=== PATIENT | female | born 1945 | race Hispanic/Latino ===

== ENCOUNTER 2017-05-01 16:30 | Emergency (ER) | payer MEDICARE, OTHER ==
[~2017-05-01] VITALS: Ht 160 cm; Wt 80.0 kg
[~2017-05-01 16:30] MED LIST: ALBUTEROL SUL0.083 % IN; AMILORIDE5 MG OR; AMLODIPINE5 MG PO; AMOXICILLIN500 MG PO; AUGMENTIN500TAB PO; AVELOX400 MG PO; BACTRIM DS1 TAB PO; CEPHALEXIN500 MG PO; CUBICIN500 MG IV; ENALAPRIL5 MG PO; FLEXERIL OR; FUROSEMIDE40 MG PO; HYDROCHLOROT50 MG OR; LEVOTHYROXIN50 MCG OR; LEVOTHYROXIN50 MCG PO; LEVOTHYROXIN75 MCG PO; LISINOPRIL10 MG PO; LORAZEPAM0.5 MG PO; MEDDOSEPAK PO; METFORMIN500 M1 OR; NAC 600 PO; NAPROSYN500 MG PO; NORCO1 TA1 PO; NOVOLIN 70/30 RELION SC; ONDANSETRON4 MG PO; PERCOCET 5/325M1 TAB PO; PYRIDIUM200 MG PO; ROBITUSSIN AC10 ML PO; TOBREX0.3 % OP; ULTRAM50 MG OR; ZYRTEC10 MG PO
[2017-05-01] MEDS ORDERED: LORTAB 10-325 M1 TAB PO (18:22)
[2017-05-01 18:58] VITALS: BP 159/73
== END 2017-05-01 18:58 | disposition home or self-care (01) ==
LOC: ED 16:30
DX: S80.01XA Contusion of right knee, initial encounter (principal); E11.9 Type 2 diabetes mellitus without complications; I10 Essential (primary) hypertension; E03.9 Hypothyroidism, unspecified; W07.XXXA Fall from chair, initial encounter; Y92.000 Kitchen of unspecified non-institutional (private) residence as the place of occurrence of the external cause; M79.604 Pain in right leg

== ENCOUNTER 2017-05-06 17:04 | Emergency (ER) | payer MEDICARE, OTHER ==
[~2017-05-06] VITALS: Ht 160 cm; Wt 80.0 kg
[~2017-05-06 17:04] MED LIST changes: +LORTAB 10-325 M1 TAB PO
[2017-05-06] MEDS ORDERED: TORADOL PO (19:54)
[2017-05-06 20:00] VITALS: BP 148/78
== END 2017-05-06 20:15 | disposition home or self-care (01) ==
LOC: ED 17:04
DX: S80.01XD Contusion of right knee, subsequent encounter (principal); M25.561 Pain in right knee; R11.2 Nausea with vomiting, unspecified; W07.XXXD Fall from chair, subsequent encounter; Y92.000 Kitchen of unspecified non-institutional (private) residence as the place of occurrence of the external cause

== ENCOUNTER 2017-09-10 13:07 | Emergency (ER) | payer MEDICARE, OTHER ==
[~2017-09-10] VITALS: Ht 160 cm; Wt 81.0 kg
[~2017-09-10 13:07] MED LIST changes: +TORADOL PO
[2017-09-10 14:00] LABS: HEMATOCRIT 40.7 % (37.0-47.0); HEMOGLOBIN 13.1 g/dl (12.0-16.0); IMMATURE GRANULOCYTES 0.2 % (0.0-1.0); MEAN CELL VOLUME 85.1 fL CALC (80.0-100.0); MEAN CORPUSCULAR HGB 27.4 pG CALC (26.0-32.0); MEAN CORPUSCULAR HGB CONC 32.2 g/L CALC (32.0-36.0); NEUT# 6.42 thou/uL (2.00-7.15); RED BLOOD COUNT 4.78 mill/uL (4.20-5.60); RED CELL DISTRI WIDTH 13.8 % (11.5-15.5)
[2017-09-10 14:19] LABS: ALBUMIN 4.1 g/dL (3.2-5.0); ALKALINE PHOSPHATASE 95 u/l (38-126); ANION GAP 18 (6-22 (CALC)); BILIRUBIN, TOTAL 0.4 mg/dL (0.0-1.4); BUN 13 mg/dL (8-23); BUN/CREATININE RATIO 14 (12-20 (CALC)); CARBON DIOXIDE 22 mmol/l (22-30); CHLORIDE 105 mmol/l (95-108); CREATININE 0.9 mg/dL (0.5-1.0); GFR > 60 ML/MIN (>=60 (CALC)); GFR FOR AFR.AMER. > 60 ML/MIN (>=60 (CALC)); LIPASE 61 u/l (23-300); POTASSIUM 4.3 mmol/l (3.5-5.1); SGOT/AST 22 u/l (9-36); SGPT/ALT 31 u/l (11-66); SODIUM 140 mmol/l (137-146); TOTAL PROTEIN 7.3 g/dL (6.3-8.2)
[2017-09-10 15:15] LABS: URINE BILIRUBIN - DIPSTICK NEGATIVE (NEGATIVE); URINE BLOOD DIPSTICK NEGATIVE (NEGATIVE); URINE COLOR YELLOW; URINE GLUCOSE - DIPSTICK 250 mg/dL (NEGATIVE); URINE KETONE NEGATIVE (NEGATIVE); URINE LEUK ESTERASE TRACE (NEGATIVE); URINE NITRITE - DIPSTICK NEGATIVE (Negative); URINE PH 6.5 (4.5-8.0); URINE PROTEIN - DIPSTICK NEGATIVE (NEG-TRACE); URINE UROBILINOGEN - DIPSTICK 0.2 E.U./dL (0.2)
[2017-09-10 15:17] LABS: URINE CLARITY CLEAR
[2017-09-10 15:55] VITALS: BP 179/77
== END 2017-09-10 16:01 | disposition home or self-care (01) ==
LOC: ED 13:07
PROVIDERS: Family Medicine
DX: K59.00 Constipation, unspecified (principal); R10.32 Left lower quadrant pain; R10.31 Right lower quadrant pain; R11.0 Nausea; I10 Essential (primary) hypertension; E11.9 Type 2 diabetes mellitus without complications; Z79.4 Long term (current) use of insulin; J43.9 Emphysema, unspecified
CPT/HCPCS: Q9967

== ENCOUNTER 2018-01-19 06:36 | Day surgery (SDC) | payer MEDICARE, OTHER ==
[~2018-01-19 06:36] MED LIST changes: +ALLEGRA180 MG PO; +OMEPRAZOLE20 MG PO; +PROVENTIL0.083 % IN
[2018-01-19 09:48] VITALS: BP 137/63
== END 2018-01-19 10:00 | disposition home or self-care (01) ==
LOC: ENDO 06:36 → ORM 08:00 → ENDO 10:00
PROVIDERS: ATTEND Surgery
PROC: 0DJD8ZZ Inspection of Lower Intestinal Tract, Via Natural or Artificial Opening Endoscopic (ICD-10-PCS; principal; 2018-01-19)
DX: K57.31 Diverticulosis of large intestine without perforation or abscess with bleeding (principal); K64.8 Other hemorrhoids; I10 Essential (primary) hypertension; E11.9 Type 2 diabetes mellitus without complications; J44.9 Chronic obstructive pulmonary disease, unspecified

== ENCOUNTER 2018-05-23 19:28 | Emergency (ER) | payer MEDICARE, OTHER ==
[~2018-05-23] VITALS: Ht 160 cm; Wt 80.0 kg
[2018-05-23] MEDS ORDERED: CETIRIZINE10 MG PO (19:59)
[2018-05-23 20:04] LABS: HEMATOCRIT 40.1 % (37.0-47.0); HEMOGLOBIN 13.1 g/dl (12.0-16.0); IMMATURE GRANULOCYTES 0.4 % (0.0-5.0); MEAN CELL VOLUME 84.6 fL CALC (80.0-100.0); MEAN CORPUSCULAR HGB 27.6 pG CALC (26.0-32.0); MEAN CORPUSCULAR HGB CONC 32.7 g/L CALC (32.0-36.0); NEUT# 3.68 thou/uL (2.00-7.15); RED BLOOD COUNT 4.74 mill/uL (4.20-5.60)
[2018-05-23 20:18] LABS: ALBUMIN 4.1 g/dL (3.2-5.0); ALKALINE PHOSPHATASE 72 u/l (38-126); ANION GAP 15 (6-22 (CALC)); BILIRUBIN, TOTAL 0.4 mg/dL (0.0-1.4); BUN 9 mg/dL (8-23); BUN/CREATININE RATIO 13 (12-20 (CALC)); CARBON DIOXIDE 24 mmol/l (22-30); CHLORIDE 103 mmol/l (95-108); CREATININE 0.7 mg/dL (0.5-1.0); GFR > 60 ML/MIN (>=60 (CALC)); GFR FOR AFR.AMER. > 60 ML/MIN (>=60 (CALC)); POTASSIUM 4.1 mmol/l (3.5-5.1); SGOT/AST 31 u/l (9-36); SODIUM 137 mmol/l (137-146); TOTAL PROTEIN 7.8 g/dL (6.3-8.2)
--- NOTE | 2018-05-23 20:23 | NUR ---
BREATHING TREATMENT GIVEN USING A TRACH COLLAR MASK. BREATHING TECH. FOR GOOD DEPOSITION TO THE LUNGS.
[2018-05-23 20:30] LABS: ACT PARTIAL THROMBO TIME 26.6 SECONDS (20.0-32.5); MYOGLOBIN 127 ng/mL (0 - 62); PROTHROMBIN TIME 10.7 SECONDS (9.0-12.5)
[2018-05-23 20:32] LABS: URINE BILIRUBIN - DIPSTICK NEGATIVE (NEGATIVE); URINE BLOOD DIPSTICK TRACE-LYSED (NEGATIVE); URINE COLOR YELLOW; URINE GLUCOSE - DIPSTICK NEGATIVE (NEGATIVE); URINE KETONE NEGATIVE (NEGATIVE); URINE NITRITE - DIPSTICK NEGATIVE (Negative); URINE PROTEIN - DIPSTICK NEGATIVE (NEG-TRACE); URINE SPECIFIC GRAVITY <=1.005; URINE UROBILINOGEN - DIPSTICK 0.2 E.U./dL (0.2)
[2018-05-23 20:33] LABS: URINE CLARITY TURBID; URINE LEUK ESTERASE MODERATE (NEGATIVE)
[2018-05-23 20:41] LABS: URINE BACTERIA FEW hpf; URINE SQUAMOUS EPITHELIAL CELL FEW EPI/hpf (0-FEW); URINE WBC 20-50 WBC/hpf (0-5)
[2018-05-23] MEDS ORDERED: VENTOLIN HFA IN (22:50)
[2018-05-23] MEDS ORDERED: PREDNISONE10 MG PO (22:50)
[2018-05-23] MEDS ORDERED: BACTRIM DS1 TAB PO (22:50)
[2018-05-23 23:35] VITALS: BP 158/76
== END 2018-05-23 23:30 | disposition home or self-care (01) ==
LOC: ED 19:28
PROVIDERS: Family Medicine
DX: J20.9 Acute bronchitis, unspecified (principal); N39.0 Urinary tract infection, site not specified; I10 Essential (primary) hypertension; E11.9 Type 2 diabetes mellitus without complications; J43.9 Emphysema, unspecified; R06.02 Shortness of breath
CPT/HCPCS: Q9967

== ENCOUNTER 2018-12-11 19:31 | Emergency (ER) | payer MEDICARE, OTHER ==
[~2018-12-11] VITALS: Ht 160 cm; Wt 77.0 kg
[~2018-12-11 19:31] MED LIST changes: +CETIRIZINE10 MG PO; +PREDNISONE10 MG PO; +VENTOLIN HFA IN
[2018-12-11 20:26] LABS: HEMATOCRIT 40.3 % (37.0-47.0); IMMATURE GRANULOCYTES 0.4 % (0.0-5.0); MEAN CELL VOLUME 85.2 fL CALC (80.0-100.0); MEAN CORPUSCULAR HGB 27.5 pG CALC (26.0-32.0); MEAN CORPUSCULAR HGB CONC 32.3 g/L CALC (32.0-36.0); NEUT# 5.1 thou/uL (2.00-7.15); RED BLOOD COUNT 4.73 mill/uL (4.20-5.60); RED CELL DISTRI WIDTH 13.9 % (11.5-15.5)
[2018-12-11 20:39] LABS: URINE BILIRUBIN - DIPSTICK NEGATIVE (NEGATIVE); URINE BLOOD DIPSTICK NEGATIVE (NEGATIVE); URINE COLOR YELLOW; URINE GLUCOSE - DIPSTICK NEGATIVE (NEGATIVE); URINE KETONE NEGATIVE (NEGATIVE); URINE LEUK ESTERASE NEGATIVE (NEGATIVE); URINE NITRITE - DIPSTICK NEGATIVE (Negative); URINE PH 5.5 (4.5-8.0); URINE PROTEIN - DIPSTICK NEGATIVE (NEG-TRACE); URINE SPECIFIC GRAVITY <=1.005; URINE UROBILINOGEN - DIPSTICK 0.2 E.U./dL (0.2)
[2018-12-11 20:57] LABS: ALBUMIN 4.3 g/dL (3.2-5.0); ALKALINE PHOSPHATASE 89 u/l (38-126); ANION GAP 15 (6-22 (CALC)); BILIRUBIN, TOTAL 0.3 mg/dL (0.0-1.4); BUN 11 mg/dL (8-23); BUN/CREATININE RATIO 16 (12-20 (CALC)); CARBON DIOXIDE 27 mmol/l (22-30); CHLORIDE 103 mmol/l (95-108); CREATININE 0.7 mg/dL (0.5-1.0); GFR > 60 ML/MIN (>=60 (CALC)); GFR FOR AFR.AMER. > 60 ML/MIN (>=60 (CALC)); POTASSIUM 4.4 mmol/l (3.5-5.1); SGOT/AST 27 u/l (9-36); SODIUM 141 mmol/l (137-146); TOTAL PROTEIN 7.8 g/dL (6.3-8.2)
[2018-12-11 21:56] VITALS: BP 139/72
== END 2018-12-11 22:06 | disposition home or self-care (01) ==
LOC: ED 19:31
PROVIDERS: Emergency Medicine
DX: J40 Bronchitis, not specified as acute or chronic (principal); R50.9 Fever, unspecified; R06.02 Shortness of breath; R05 Cough; R20.0 Anesthesia of skin; I10 Essential (primary) hypertension; Z93.0 Tracheostomy status

== ENCOUNTER 2019-07-13 08:19 | Observation (INO) | payer MEDICARE, OTHER ==
[~2019-07-13] VITALS: Ht 160 cm; Wt 90.0 kg
[2019-07-13 08:55] LABS: HEMATOCRIT 44.6 % (37.0-47.0); HEMOGLOBIN 14.7 g/dl (12.0-16.0); IMMATURE GRANULOCYTES 0.6 % (0.0-5.0); MEAN CORPUSCULAR HGB 27.7 pG CALC (26.0-32.0); NEUT# 5.52 thou/uL (2.00-7.15); RED BLOOD COUNT 5.31 mill/uL (4.20-5.60); RED CELL DISTRI WIDTH 13.8 % (11.5-15.5)
[2019-07-13 09:10] LABS: ALBUMIN 4.9 g/dL (3.2-5.0); ALKALINE PHOSPHATASE 109 u/l (38-126); AMYLASE 61 u/l (30-110); ANION GAP 17 (6-22 (CALC)); BUN 12 mg/dL (8-23); BUN/CREATININE RATIO 18 (12-20 (CALC)); CARBON DIOXIDE 23 mmol/l (22-30); CHLORIDE 101 mmol/l (95-108); CREATININE 0.7 mg/dL (0.5-1.0); GFR > 60 ML/MIN (>=60 (CALC)); GFR FOR AFR.AMER. > 60 ML/MIN (>=60 (CALC)); LIPASE 70 u/l (23-300); POTASSIUM 4.1 mmol/l (3.5-5.1); SGOT/AST 27 u/l (9-36); SODIUM 137 mmol/l (137-146); TOTAL PROTEIN 9.2 g/dL (6.3-8.2)
[2019-07-13 09:19] LABS: BILIRUBIN, TOTAL 0.6 mg/dL (0.0-1.4)
[2019-07-13 09:27] LABS: URINE BILIRUBIN - DIPSTICK NEGATIVE (NEGATIVE); URINE BLOOD DIPSTICK NEGATIVE (NEGATIVE); URINE COLOR YELLOW; URINE GLUCOSE - DIPSTICK 100 mg/dL (NEGATIVE); URINE KETONE 15 mg/dL (NEGATIVE); URINE LEUK ESTERASE NEGATIVE (NEGATIVE); URINE NITRITE - DIPSTICK NEGATIVE (Negative); URINE PROTEIN - DIPSTICK NEGATIVE (NEG-TRACE); URINE SPECIFIC GRAVITY 1.015; URINE UROBILINOGEN - DIPSTICK 0.2 E.U./dL (0.2)
--- NOTE | 2019-07-13 09:55 | NUR ---
RECIEVED REPORT FROM CANDACE TRUJILLO
--- NOTE | 2019-07-13 10:00 | NUR ---
PT STATES THAT SHE HAS N/V THAT HAS BEEN GOING ON SINCE TODAY AT 0200. PT COMPLAINS OF A 7/10 PAIN IN THE "LADY PARTS" PT STATES HAVING PAIN UPON URINATION, THAT THERE IS A PRESSURE. PT STATES FEELING A BURNING SENSATION IN THE STOMACH. LUNGS CLEAR BI, CAP REFILL BRISK, AND GENERALIZED STOMACH PAIN.
--- NOTE | 2019-07-13 11:15 | NUR ---
PT CONTINUES TO STATE PAIN AND PRESSURE WHEN SHE URINATES, MD ORDERED MEDICATIONS FOR PAIN
--- NOTE | 2019-07-13 12:17 | NUR ---
REASSESSED PT FOR PAIN AFTER MORPHINE ADMINISTRATION PT STATES HER PAIN IS ABOU A 5/10. WILL CONTINUE TO MONITOR. PT ADVISED OF PLAN OF CARE, AND WAIT TIME
[2019-07-13] MEDS ORDERED: AMLODIPINE BESY10 MG PO (13:12)
[2019-07-13] MEDS ORDERED: LORAZEPAM0.5 MG PO (13:13)
[2019-07-13] MEDS ORDERED: LEVOTHYROXIN50 MCG PO (13:13)
[2019-07-13] MEDS ORDERED: OMEPRAZOLE DR40 MG PO (13:13)
[2019-07-13] MEDS ORDERED: NOVOLIN 70/30 SC ×2 (13:14→14:46)
--- NOTE | 2019-07-13 13:25 | NUR ---
DENISA TIERNEY RN
--- NOTE | 2019-07-13 13:45 | NUR ---
PT TRANSPORTED IN STABLE CONDITION AND IN NO DISTRESS TO ROOM 4 ICU. CARE ASSUMED TO KELSY TRUJILLO
--- NOTE | 2019-07-13 13:53 | NUR ---
PT TO ICU4 BY STRETCHER WITH TELE. PT MOVED TO NEW BED x3. ATTACHED TO MONITORS, PUREWICK PLACED. SON @BEDSIDE. EDUCATED ON BED CONTROLS, CALLBELL, SAFETY/FALL, VS.
--- NOTE | 2019-07-13 14:15 | NUR ---
PT CAME TO [facility] ER TODAY FOR N/V/D THAT STARTED SUDDENLY AROUND 0200 THIS AM. PT ALSO C/O PAIN/PRESSURE TO GROIN AREA SINCE SAME; GIVEN MORPHINE IN ER WITH LITTLE RELEIF. PT IS ISRAELI SPEAKING. DENIES FEVER. ON RA. NSR ON TELE. A&Ox4. ALLERGIES TO ASA & VANCO. NO HX OF BLOOD TRANSFUSIONS BUT NO OBJECTIONS. NO HEARING AIDS. NO GLASSES. NO RECENT TOBACCO. PARTIAL DENTURES AT HOME. DENIES ALCOHOL. DENIES DRUGS. 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 C/O SOFT DIARRHEA TODAY. DENIES SKIN ALTERATIONS, NONE OBSERVED. FELL OUT OF BED THIS MORNING TRYING TO GET TO BATHROOM TO VOMIT, NO OTHER FALLS. USES A WALKER AT HOME. LIVES IN APARTMENT ALONE. TAKES ADVIL FOR PAIN AT HOME. CONFUCIANIST: LUTHERAN. NO HOME HEALTH, NO RECENT ADMISSION. ABD SOFT, GROIN TENDER. SKIN WARM/DRY/PINK. STRONG PULSES.
--- NOTE | 2019-07-13 14:30 | NUR ---
PHARMACY @BEDSIDE TO VERIFY HOME MEDS.
[2019-07-13] MEDS ORDERED: CRESTOR20 MG PO (14:48)
[2019-07-13] MEDS ORDERED: XALATAN 0.005%2.5 ML OU (14:50)
--- NOTE | 2019-07-13 15:17 | NUR ---
700ml CLEAR YELLOW OUTPUT IN CANISTER FROM PURE WICK BUT PT STILL C/O PRESSURE TO GROING. BLADDER SCANNER SHOWS 868ml URINE IN BLADDER. CYLINDER FILLER NOTIFIED, RBVO FOR CATH NAVA. PT & SON @BEDSIDE OK WITH PROCEDURE.
--- NOTE | 2019-07-13 15:33 | NUR ---
CATH NAVA PLACED USING STERILE PROCEDURE. IMMEDIATE URINE RETURN. LEG STRAP ON RIGHT THIGH. NAVA DRAINING TO GRAVITY.
[2019-07-13 15:45] VITALS: BP 178/77
--- NOTE | 2019-07-13 15:55 | NUR ---
PT ADMITS RELEIF OF PRESSURE AFTER ANOTHER 700ml OUTPUT OF URINE IN NAVA. PT GIVEN ICE CHIPS FOR DRY MOUTH.
[2019-07-13 16:00] VITALS: BP 143/61
--- NOTE | 2019-07-13 16:06 | NUR ---
PT PLACED ON CONTACT PRECAUTIONS D/T HX OF MRSA. ORDER SET & PPE BAG PLACED. SON @BEDSIDE EDUCATED ON PPE. NASAL SWAB COLLECTED.
--- NOTE | 2019-07-13 17:46 | NUR ---
PT DENIES N/V AT THIS TIME. NO V/D SINCE ARRIVAL TO ICU. PT GIVEN 120ml APPLE JUICE (PT PREFERENCE) TO SIP. PT & SON EDUCATED ON ANTIBIOTICS. ACCUCHECK 168 NOT COVERED D/T NPO STATUS.
--- NOTE | 2019-07-13 17:57 | NUR ---
RT @BEDSIDE FOR BREATHING TREATMENT.
[2019-07-13 18:00] VITALS: BP 154/65
[2019-07-13 19:38] LABS: URINE BILIRUBIN - DIPSTICK NEGATIVE (NEGATIVE); URINE BLOOD DIPSTICK NEGATIVE (NEGATIVE); URINE COLOR YELLOW; URINE GLUCOSE - DIPSTICK 250 mg/dL (NEGATIVE); URINE KETONE NEGATIVE (NEGATIVE); URINE LEUK ESTERASE NEGATIVE (NEGATIVE); URINE NITRITE - DIPSTICK NEGATIVE (Negative); URINE PH 7.5 (4.5-8.0); URINE PROTEIN - DIPSTICK NEGATIVE (NEG-TRACE); URINE UROBILINOGEN - DIPSTICK 0.2 E.U./dL (0.2)
[2019-07-13 20:00] VITALS: BP 103/60
--- NOTE | 2019-07-13 20:00 | NUR ---
awake. nad. son (jeana) @ bedside & translates for this typewriters functional tester. youth nutritional monitor shows sinus tach hr 112. #20 rac ns infusing @ [id number]. remains npo. castro cath in place. urine clear yellow. fall & contact precautions cont.
--- NOTE | 2019-07-13 21:00 | NUR ---
sonata 5mg po given per request for sleep. family @ bedside.
[2019-07-14] VITALS (8 sets, daily range): BP systolic 127–156; BP diastolic 57–79
--- NOTE | 2019-07-14 00:01 | NUR ---
eyes closed. desk monitor shows sinus rhythm hr 82. son @ bedside.
--- NOTE | 2019-07-14 04:00 | NUR ---
hospital monitor shows sinus yoly 1st degree avb hr 58.
--- NOTE | 2019-07-14 07:00 | NUR ---
pt awake in bed; no apparent distress noted at this time; assessment completed; pt nepali only; family members x3 at bedside; family (son Jimmy) request to interpret; ATT line explained; pt denies pain; no n/v noted; resp even and unlabored; lungs clear; skin color wnl; ra; trach with self care noted; hr reg; strong pulses; no edema noted; sr on monitor; abd soft with bs present; no bm noted per screen writer; pt with complaints of llq pain upon palpation; castro to gravity draining clear yellow urine; cath strap intact; # 20 patent to rac with ivf infusing without complication; no redness or edema noted at site; plan of care/ am meds explained; NPO explained; pt able to reposition self; call light within reach; will continue to monitor
--- NOTE | 2019-07-14 08:08 | NUR ---
awake in bed; family x2 present at bedside; no apparent distress noted; castro to gravity; iv intact and patent; sr on monitor; npo maintained; will continue to monitor
--- NOTE | 2019-07-14 10:09 | NUR ---
awake in bed; no apparent distress noted; family x3 at bedside; pt deny needs; pt deny pain, n/v; iv intact and patent; castro to gravity; sr on monitor; call light within reach; will continue to monitor
--- NOTE | 2019-07-14 10:42 | NUR ---
Sydney Lombardo NP present at bedside to assess pt and discuss plan of care
--- NOTE | 2019-07-14 11:24 | NUR ---
ivf decreased as per orders; diet explained; will continue to monitor
[2019-07-14 11:46] LABS: ANION GAP 11 (6-22 (CALC)); BUN 8 mg/dL (8-23); BUN/CREATININE RATIO 13 (12-20 (CALC)); CARBON DIOXIDE 24 mmol/l (22-30); CHLORIDE 108 mmol/l (95-108); CREATININE 0.7 mg/dL (0.5-1.0); GFR > 60 ML/MIN (>=60 (CALC)); GFR FOR AFR.AMER. > 60 ML/MIN (>=60 (CALC)); MAGNESIUM 1.9 mg/dL (1.6-2.3); POTASSIUM 3.5 mmol/l (3.5-5.1); SODIUM 139 mmol/l (137-146)
--- NOTE | 2019-07-14 12:10 | NUR ---
pt awake in bed; no apparent distress noted; pt offers no complaints; denies pain; no n/v noted; castro to gravity; pt tolerating full liquid diet; iv intact and patent; no redness or edema noted at site; call light within reach; will continue to monitor
--- NOTE | 2019-07-14 14:20 | NUR ---
resting in bed with eyes closed; family remains at bedside; no apparent distress noted; castro to gravity; iv patent; no redness or edema noted at site; call light within reach; will continue to monitor
--- NOTE | 2019-07-14 15:15 | NUR ---
castro cath removed as per orders; bsc placed; pt aware to use call light for bathroom/ not to get up without assistance
--- NOTE | 2019-07-14 15:25 | NUR ---
Dr Interiano present at bedside to assess pt and discuss plan of care; Rhonda Rao CNA at bedside to interpret; castro has been removed; pt requesting deep suctioning via trac; RT notified and at bedside; sputum to be collected; family at bedside; will continue to monitor
--- NOTE | 2019-07-14 16:10 | NUR ---
awake in bed; offers no complaints; no apparent distress noted; iv intact and patent; no redness or edema noted at site; sr on monitor; family at beside; call light within reach; will continue to monitor
--- NOTE | 2019-07-14 18:05 | NUR ---
awake in bed eating dinner; family at bedside; no apparent distress noted; sr on monitor; pt had voided post castro removal; call light within reach
--- NOTE | 2019-07-14 19:45 | NUR ---
PT SITS ON BSC, FAMILY AT BEDSIDE. NO ACUTE DISTRESS SHOWN. ALERT AND ORIENTED X4. HEAD TO TOE NURSING ASSESSMENT PERFORMED, SEE CHARTING DOCUMENTATION. NAURUAN SPEAKING ONLY. RAC 20 G IV INTACT, NS INFUSING AT 80 ML/HR. PT REPORTS SHE HAS BEEN ABLE TO VOID. TRACH INTACT, PT DOES PRODUCE MODERATE AMOUNT OF WHITE THIN PHLEGM FROM TRACH. NO COMPLAINTS OF PAIN. POC FOR TONIGHT DISCUSSED. SELF REPSITIONS. ON ROOM AIR, NO SOB NOTED. CALL LIGHT WITHIN REACH.
--- NOTE | 2019-07-14 20:54 | NUR ---
RT NOTIFIES PT REQUESTS BREATHING TX.
--- NOTE | 2019-07-14 21:24 | NUR ---
PT DAUGHTER AT BEDSIDE, PT NOW RECEIVING BREATHING TX. BEDTIME MEDICATION PROVIDED. PT HAS VOIDED, 300ML. PT SITS AT SIDE OF BED. CALL LIGHT WITHIN REACH.
--- NOTE | 2019-07-14 21:56 | NUR ---
CALLED AND SPOKE TO DR TEJADA REGARDING PATIENT IS ANXIOUS AND REQUESTS LORAZEPAM WHICH SHE TAKES AT HOME. NEW ORDERS RECEIVED.
--- NOTE | 2019-07-14 22:08 | NUR ---
LORAZEPAM PO PROVIDED TO PATIENT, SHE CONTINUES TO SHAKE AND IS ANXIOUS. DAUGHTER AT BEDSIDE. PT SITS ON BSC, CALL LIGHT WITHIN REACH.
--- NOTE | 2019-07-14 23:06 | NUR ---
FELIPE CISNEROS AT BEDSIDE.
--- NOTE | 2019-07-14 23:17 | NUR ---
DAUGHTER HAS LEFT BEDSIDE, REASSURED WILL NOTIFY IF ANY CHANGES.
--- NOTE | 2019-07-14 23:38 | NUR ---
PATIENT LAYS ON LEFT SIDE. NO NEEDS AT THIS TIME. NO COMPLAINTS. NO ACUTE DISTRESS SHOWN. CALL LIGHT WITHIN REACH.
[2019-07-15 00:31] VITALS: BP 147/67
--- NOTE | 2019-07-15 03:16 | NUR ---
PATIENT LAYS WITH HOB 30 DEGREES. RESTS WITH EYES CLOSED. NO ACUTE DISTRESS SHOWN. CALL LIGHT WITHIN REACH.
[2019-07-15 04:08] VITALS: BP 153/74
--- NOTE | 2019-07-15 04:11 | NUR ---
CALLED AND SPOKE TO DR IBARRA REGARDING PT C/O OF FEELING BLOATED AND NOT ABLE TO HAVE A BM. LAST BM CHARTED WAS 07/14/18 YESTERDAY. NEW ORDERS RECEIVED. WILL PROVIDE SOON AVAILABLE. PRUNE JUICE WAS ALSO PROVIDED.
--- NOTE | 2019-07-15 04:39 | NUR ---
PT PROVIDED MOM, NOW SITS ON BSC TO VOID AND TRY TO HAVE A BM. CALL LIGHT WITHIN REACH.
--- NOTE | 2019-07-15 04:55 | NUR ---
PT VOIDED 500ML. REPORTS FEELING NAUSEUS BUT REFUSES NAUSEA MEDICATION, SHE WOULD LIKE TO WAIT TO HAVE BOWEL MOVEMENT. NOW LAYS ON HER RIGHT SIDE. CALL LIGHT WITHIN REACH.
--- NOTE | 2019-07-15 05:39 | NUR ---
PT LAYS ON HER RIGHT SIDE, WHEN ASKED IF HER STOMACH FEELS BETTER, SHE REPLIES, "YES, A LITTLE BETTER.," IN CYMRO. WILL CONTINUE TO MONITOR. NO NEEDS AT THIS TIME. CALL LIGHT WITHIN REACH.
--- NOTE | 2019-07-15 06:30 | NUR ---
PT ASSISTED TO AND FROM BSC. HAD A LARGE AMOUNT OF LOOSE WATERY STOOL, DID NOT COLLECT STOOL DUE TO CONTACT WITH URINE. PT WASHED HER MOUTH, PLACED HER DENTURES. NOW LAYS BACK IN BED.
--- NOTE | 2019-07-15 07:50 | NUR ---
PT RESTING QUIETLY IN BED. ASSESSMENT COMPLETED. NO RESP DISTRESS NOTED. SON AT BEDSIDE. PT HAS A TRACH ABLE TO COMMUNICATE IN MALAGASY. NO COMPLAINTS VOICED AT THIS TIME. WILL CONTINUE TO MONITOR. CALL LIGHT WITHIN REACH.
--- NOTE | 2019-07-15 08:25 | NUR ---
DR. NAVA IN TO SEE PATIENT.
[2019-07-15 08:36] VITALS: BP 143/73
[2019-07-15] MEDS ORDERED: CIPROFLOXACN500 MG PO (08:39)
[2019-07-15] MEDS ORDERED: METRONIDAZOL500 MG PO (08:39)
[2019-07-15 11:26] VITALS: BP 137/64
--- NOTE | 2019-07-15 12:00 | NUR ---
PT CONTINUES TO REST QUIETLY IN BED. NO RESP. DISTRESS NOTED. NO COMPLAINTS VOICED AT THIS TIME. WILL CONTINUE TO MONITOR CONDITION. CALL LIGHT REMAINS WITHIN REACH.
--- NOTE | 2019-07-15 16:00 | NUR ---
PT CONTINUES TO REST QUIETLY IN BED. SON AT BEDSIDE VISITING. NO CHANGE IN ASSESSMENT. NO COMPLAINTS VOICED. NO RESP. DISTRESS NOTED. WILL CONTINUE TO MONITOR. CALL LIGHT REMAINS WITHIN REACH.
--- NOTE | 2019-07-15 16:29 | NUR ---
DR. NAVA IN TO SEE PATIENT.
[2019-07-15 16:30] VITALS: BP 139/68
--- NOTE | 2019-07-15 19:01 | NUR ---
DISCHARGE INSTRUCTIONS AND EDUCATION PROVIDED TO PATIENT AND SON AT BEDSIDE. PATIENT CHANGING INTO HER CLOTHES AND VOIDING ON BSC NOW.
--- NOTE | 2019-07-15 19:50 | NUR ---
Discharge instructions given. Patient verbalizes understanding of same. Discharged in stable condition via Wheelchair to Home with family. All belongings sent with pt. PATIENT SAFELY TRANSFERRED VIA WHEELCHAIR TO SON'S CAR ACCOMPANIED BY DAUGHTER. ALL BELONGINGS WITH PATIENT.
== END 2019-07-15 19:05 | disposition home or self-care (01) ==
LOC: ED 08:19 → ED-I 11:12 → ED 11:42 → ICU 11:43
PROVIDERS: Nurse Practitioner Family; ADMIT Internal Medicine; ATTEND Internal Medicine
DX: K57.30 Diverticulosis of large intestine without perforation or abscess without bleeding (principal); E87.2 Acidosis; I10 Essential (primary) hypertension; E11.9 Type 2 diabetes mellitus without complications; J43.9 Emphysema, unspecified; E03.9 Hypothyroidism, unspecified; R33.9 Retention of urine, unspecified; Z79.4 Long term (current) use of insulin; Z93.0 Tracheostomy status; Z87.891 Personal history of nicotine dependence; J38.00 Paralysis of vocal cords and larynx, unspecified
CPT/HCPCS: Q9967

== ENCOUNTER 2019-12-04 09:01 | Emergency (ER) | payer MEDICARE, OTHER ==
[~2019-12-04 09:01] MED LIST changes: +AMLODIPINE BESY10 MG PO; +CIPROFLOXACN500 MG PO; +CRESTOR20 MG PO; +METRONIDAZOL500 MG PO; +NOVOLIN 70/30 SC; +OMEPRAZOLE DR40 MG PO; +XALATAN 0.005%2.5 ML OU
[2019-12-04] MEDS ORDERED: VOLTAREN1%GEL TOP ×2 (10:51)
[2019-12-04] MEDS ORDERED: GABAPENTIN100 MG PO ×2 (10:51)
[2019-12-04] MEDS ORDERED: LATANOPROST0.005 % OU (10:54)
[2019-12-04] MEDS ORDERED: ATENOLOL50 MG PO (10:55)
[2019-12-04] MEDS ORDERED: AMLODIPINE BES2.5 MG PO (10:56)
[2019-12-04] MEDS ORDERED: HYZAAR1 TAB PO (10:56)
[2019-12-04] MEDS ORDERED: ATIVAN1 MG PO (10:58)
[2019-12-04] MEDS ORDERED: SYNTHROID88 MCG PO (10:59)
[2019-12-04 11:00] VITALS: BP 119/79
== END 2019-12-04 11:00 | disposition home or self-care (01) ==
LOC: ED 09:01
DX: M25.532 Pain in left wrist (principal); I10 Essential (primary) hypertension; E11.9 Type 2 diabetes mellitus without complications; J43.9 Emphysema, unspecified; Z79.4 Long term (current) use of insulin

== ENCOUNTER 2020-03-22 06:59 | Observation (INO) | payer MEDICARE, OTHER ==
[~2020-03-22] VITALS: Ht 160 cm; Wt 80.0 kg
[~2020-03-22 06:59] MED LIST changes: +AMLODIPINE BES2.5 MG PO; +ATENOLOL50 MG PO; +ATIVAN1 MG PO; +GABAPENTIN100 MG PO; +HYZAAR1 TAB PO; +LATANOPROST0.005 % OU; +SYNTHROID88 MCG PO; +VOLTAREN1%GEL TOP
--- NOTE | 2020-03-22 07:12 | NUR ---
PT TAKEN VIA WHEELCHAIR TO ROOM 8. AO X 3 SKIN PINK WARM AND DRY. PT WALLISIAN SPEAKING ONLY. DR AGUERO PRESENT TO INTERPRET. PT REPORTS BURNING WITH URINATION FOR 3 DAYS. CHANGED TO GOWN. POSITIONED FOR COMFORT. CALL SULLIVAN IN REACH
[2020-03-22 07:45] LABS: HEMATOCRIT 42.2 % (37.0-47.0); HEMOGLOBIN 13.3 g/dl (12.0-16.0); IMMATURE GRANULOCYTES 0.2 % (0.0-5.0); MEAN CELL VOLUME 88.7 fL CALC (80.0-100.0); MEAN CORPUSCULAR HGB 27.9 pG CALC (26.0-32.0); MEAN CORPUSCULAR HGB CONC 31.5 g/dL CAL (32.0-36.0); NEUT# 8.87 thou/uL (2.00-7.15); RED BLOOD COUNT 4.76 mill/uL (4.20-5.60)
[2020-03-22 07:53] LABS: URINE BILIRUBIN - DIPSTICK NEGATIVE (NEGATIVE); URINE BLOOD DIPSTICK MODERATE (NEGATIVE); URINE COLOR YELLOW; URINE GLUCOSE - DIPSTICK NEGATIVE (NEGATIVE); URINE KETONE NEGATIVE (NEGATIVE); URINE LEUK ESTERASE LARGE (NEGATIVE); URINE NITRITE - DIPSTICK NEGATIVE (Negative); URINE PH 5.5 (4.5-8.0); URINE PROTEIN - DIPSTICK 100 mg/dL (NEG-TRACE); URINE UROBILINOGEN - DIPSTICK 0.2 E.U./dL (0.2)
[2020-03-22 08:00] LABS: URINE WBC >100 WBC/hpf (0-5)
[2020-03-22 08:01] LABS: URINE BACTERIA FEW hpf
[2020-03-22 08:05] LABS: ALBUMIN 4.3 g/dL (3.2-5.0); ALKALINE PHOSPHATASE 76 u/l (38-126); ANION GAP 13 (6-22 (CALC)); BILIRUBIN, TOTAL 0.4 mg/dL (0.0-1.4); BUN 14 mg/dL (8-23); BUN/CREATININE RATIO 16 (12-20 (CALC)); CARBON DIOXIDE 28 mmol/l (22-30); CHLORIDE 101 mmol/l (95-108); CREATININE 0.8 mg/dL (0.5-1.0); GFR > 60 ML/MIN (>=60 (CALC)); GFR FOR AFR.AMER. > 60 ML/MIN (>=60 (CALC)); POTASSIUM 4.2 mmol/l (3.5-5.1); SGOT/AST 27 u/l (9-36); SODIUM 137 mmol/l (137-146); TOTAL PROTEIN 7.9 g/dL (6.3-8.2)
--- NOTE | 2020-03-22 08:15 | NUR ---
PT RETURNED FROM CT. IV ANTIBIOTIC INFUSING
--- NOTE | 2020-03-22 09:09 | NUR ---
PT RESTING ON STRETCHER AWAITING RESULTS
--- NOTE | 2020-03-22 09:53 | NUR ---
PT GIVEN BREAKFAST TRAY
[2020-03-22] MEDS ORDERED: CETIRIZINE10 MG PO (11:20)
--- NOTE | 2020-03-22 11:23 | NUR ---
MED REC DONE. PHARMACY CONSULT ORDERED
--- NOTE | 2020-03-22 11:31 | NUR ---
REPORT CALLED TO NICKY TRUJILLOGARBAGE DEPOT WORKER
--- NOTE | 2020-03-22 11:40 | NUR ---
PT TRANSPORTED VIA WHEELCHAIR TO [facility]
--- NOTE | 2020-03-22 12:10 | NUR ---
PT ARRIVED VIA STRETCHER WITH STAFF. IV SITE IS FREE FROM REDNESS OR EDEMA. [PT AMBULATED TO THE BATHROOM.
[2020-03-22 12:30] VITALS: BP 164/71
--- NOTE | 2020-03-22 12:30 | NUR ---
ASSESSMENT IS COMPLETED: INTERPRETED BY ANA LILIA CLARK. IV SITE IS FREE FROM REDNESS OR EDEMA. HR IS REG,PULSES ARE STRONG X4, ABD IS SOFT WITH ACTIVE BS. BREATH SOUNDS ARE CLEAR, C/O PAIN WHILE URINATING. CONTINUE TO OSBERVE AND MONITOR.
--- NOTE | 2020-03-22 15:11 | NUR ---
PT FAMILY IN THE ROOM. WILL BRING HER THINGS FOR HER TRACH TO BE CLEANED.
[2020-03-22 15:18] VITALS: BP 180/76
[2020-03-22 15:56] VITALS: BP 151/61
--- NOTE | 2020-03-22 16:30 | NUR ---
PT IS RELAXING IN BED WITH NO DISTRESS NOTED. IV SITE IS FREE FROM REDNESS OR EDEMA.
[2020-03-22 18:40] VITALS: BP 148/71
--- NOTE | 2020-03-22 18:48 | NUR ---
REPORT RECEIVED FROM FADIA SAUNDERS. PT RESTING IN BED. NO S/S OF DISTRESS AT THIS TIME. WILL CONTINUE TO MONITOR.
--- NOTE | 2020-03-23 04:00 | NUR ---
PT RESTING IN BED, NO S/S OF DISTRESS AT THIS TIME. SAFETY PRECAUTIONS IN PLACE. WILL CONTINUE TO MONITOR.
[2020-03-23 04:54] LABS: HEMATOCRIT 41.6 % (37.0-47.0); HEMOGLOBIN 13.3 g/dl (12.0-16.0); IMMATURE GRANULOCYTES 0.2 % (0.0-5.0); MEAN CELL VOLUME 88.9 fL CALC (80.0-100.0); MEAN CORPUSCULAR HGB 28.4 pG CALC (26.0-32.0); NEUT# 4.98 thou/uL (2.00-7.15); RED BLOOD COUNT 4.68 mill/uL (4.20-5.60); RED CELL DISTRI WIDTH 13.9 % (11.5-15.5)
[2020-03-23 05:13] LABS: ALBUMIN 3.8 g/dL (3.2-5.0); ALKALINE PHOSPHATASE 68 u/l (38-126); ANION GAP 10 (6-22 (CALC)); BILIRUBIN, TOTAL 0.5 mg/dL (0.0-1.4); BUN 13 mg/dL (8-23); BUN/CREATININE RATIO 20 (12-20 (CALC)); CARBON DIOXIDE 27 mmol/l (22-30); CHLORIDE 103 mmol/l (95-108); CREATININE 0.7 mg/dL (0.5-1.0); GFR > 60 ML/MIN (>=60 (CALC)); GFR FOR AFR.AMER. > 60 ML/MIN (>=60 (CALC)); MAGNESIUM 2.1 mg/dL (1.6-2.3); POTASSIUM 4.3 mmol/l (3.5-5.1); SGOT/AST 24 u/l (9-36); SODIUM 136 mmol/l (137-146); TOTAL PROTEIN 6.8 g/dL (6.3-8.2)
[2020-03-23 05:33] VITALS: BP 139/71
[2020-03-23 07:45] VITALS: BP 137/57
--- NOTE | 2020-03-23 07:45 | NUR ---
ASSESSMENT IS COMPLETED; IV SITE IS FREE FROM REDNESS OR EDEMA. HR IS REG,PULSES ARE STRONG X4, ABD IS SOFT WITH ACTIVE BS. BREATH SOUNDS ARE CLEAR,BILATERALLY, HAS MINIMAL BURNING NOTED ON URINATION. CONTINUE TO OBSERVE AND MONITOR.
[2020-03-23 08:36] VITALS: BP 137/57
[2020-03-23] MEDS ORDERED: KEFLEX500 MG PO (11:17)
[2020-03-23] MEDS ORDERED: PYRIDIUM200 MG PO (11:22)
[2020-03-23] MEDS ORDERED: ESTRACE0.1 MG/GM VA (11:22)
--- NOTE | 2020-03-23 12:05 | NUR ---
IV SITE DISCONITNUED CATHETER INTACT. DISCHARGE INSTRUCTIONS GIVEN AND INTERPRETED BY CHARLES FOX OF [place]. OVER THE PHONE., SPOKE WITH PT AND DAUGHTER. THE TEACHING WERE DISPENSED IN KHMER/ VERBALIZED UNDERSTANDING. Discharge instructions given. Patient verbalizes understanding of same. Discharged in stable condition via Wheelchair to Home with family. All belongings sent with pt.
== END 2020-03-23 12:13 | disposition home or self-care (01) ==
LOC: ED 06:59 → ED-I 09:15 → ED 09:50 → MS2 09:51
PROVIDERS: Family Medicine; Nurse Practitioner; ADMIT Internal Medicine; ATTEND Internal Medicine
DX: N39.0 Urinary tract infection, site not specified (principal); I10 Essential (primary) hypertension; E11.9 Type 2 diabetes mellitus without complications; J43.9 Emphysema, unspecified; E03.9 Hypothyroidism, unspecified; H91.90 Unspecified hearing loss, unspecified ear; R10.2 Pelvic and perineal pain; B96.89 Other specified bacterial agents as the cause of diseases classified elsewhere; Z79.4 Long term (current) use of insulin; Z87.891 Personal history of nicotine dependence; Z93.0 Tracheostomy status; Z87.440 Personal history of urinary (tract) infections; Z20.828 Contact with and (suspected) exposure to other viral communicable diseases
CPT/HCPCS: G0378; J1650; Q9967

== ENCOUNTER 2020-04-20 11:44 | Emergency (ER) | payer MEDICARE, OTHER ==
[~2020-04-20] VITALS: Ht 160 cm; Wt 84.0 kg
[~2020-04-20 11:44] MED LIST changes: +ESTRACE0.1 MG/GM VA; +KEFLEX500 MG PO
[2020-04-20 12:24] LABS: HEMATOCRIT 41.4 % (37.0-47.0); HEMOGLOBIN 13.4 g/dl (12.0-16.0); IMMATURE GRANULOCYTES 0.4 % (0.0-5.0); MEAN CELL VOLUME 88.7 fL CALC (80.0-100.0); MEAN CORPUSCULAR HGB 28.7 pG CALC (26.0-32.0); MEAN CORPUSCULAR HGB CONC 32.4 g/dL CAL (32.0-36.0); NEUT# 5.26 thou/uL (2.00-7.15); RED BLOOD COUNT 4.67 mill/uL (4.20-5.60); RED CELL DISTRI WIDTH 13.4 % (11.5-15.5)
[2020-04-20 12:43] LABS: ALBUMIN 4.5 g/dL (3.2-5.0); ALKALINE PHOSPHATASE 67 u/l (38-126); ANION GAP 11 (6-22 (CALC)); BILIRUBIN, TOTAL 0.3 mg/dL (0.0-1.4); BUN 13 mg/dL (8-23); BUN/CREATININE RATIO 18 (12-20 (CALC)); CARBON DIOXIDE 29 mmol/l (22-30); CHLORIDE 102 mmol/l (95-108); CREATININE 0.7 mg/dL (0.5-1.0); GFR > 60 ML/MIN (>=60 (CALC)); GFR FOR AFR.AMER. > 60 ML/MIN (>=60 (CALC)); POTASSIUM 4.2 mmol/l (3.5-5.1); SGOT/AST 26 u/l (9-36); SODIUM 138 mmol/l (137-146)
[2020-04-20 12:45] LABS: ACT PARTIAL THROMBO TIME 23.4 SECONDS (20.0-32.5); PROTHROMBIN TIME 9.9 SECONDS (9.0-12.5)
[2020-04-20 12:48] LABS: TOTAL PROTEIN 8.7 g/dL (6.3-8.2)
[2020-04-20] MEDS ORDERED: PEPCID20 MG PO (14:01)
[2020-04-20 15:05] VITALS: BP 153/73
== END 2020-04-20 15:05 | disposition home or self-care (01) ==
LOC: ED 11:44
PROVIDERS: Student in an Organized Health Care Education/Training Program
DX: R07.9 Chest pain, unspecified (principal); K21.9 Gastro-esophageal reflux disease without esophagitis; I25.10 Atherosclerotic heart disease of native coronary artery without angina pectoris; I10 Essential (primary) hypertension; E11.9 Type 2 diabetes mellitus without complications; J43.9 Emphysema, unspecified; Z79.4 Long term (current) use of insulin; Z88.6 Allergy status to analgesic agent; Z93.0 Tracheostomy status

== ENCOUNTER 2020-05-19 06:46 | Day surgery (SDC) | payer MEDICARE, OTHER ==
[~2020-05-19] VITALS: Ht 160 cm; Wt 81.6 kg
[~2020-05-19 06:46] MED LIST changes: +IPRATROPIUM BR0.02 % IN; +OMEPRAZOLE10 MG PO; +PEPCID20 MG PO
[2020-05-19] MEDS ORDERED: ALLEGRA ALLERGY60 MG PO (07:33)
[2020-05-19 11:28] VITALS: BP 162/70
== END 2020-05-19 12:00 | disposition home or self-care (01) ==
LOC: ORM 06:46
PROVIDERS: ATTEND Urology
PROC: 0T5B8ZZ Destruction of Bladder, Via Natural or Artificial Opening Endoscopic (ICD-10-PCS; principal; 2020-05-19)
DX: N30.21 Other chronic cystitis with hematuria (principal); F32.9 Major depressive disorder, single episode, unspecified; E11.9 Type 2 diabetes mellitus without complications; I10 Essential (primary) hypertension; I48.91 Unspecified atrial fibrillation; E03.9 Hypothyroidism, unspecified; J44.9 Chronic obstructive pulmonary disease, unspecified; Z79.4 Long term (current) use of insulin; Z87.440 Personal history of urinary (tract) infections; Z20.828 Contact with and (suspected) exposure to other viral communicable diseases

== ENCOUNTER 2021-07-12 08:06 | Emergency (ER) | payer MEDICARE, OTHER ==
[~2021-07-12] VITALS: Ht 160 cm; Wt 85.0 kg
[~2021-07-12 08:06] MED LIST changes: +ALLEGRA ALLERGY60 MG PO
[2021-07-12] MEDS ORDERED: MOTRIN400 MG/TAB PO (09:45)
[2021-07-12] MEDS ORDERED: MITIGARE0.6 MG PO (09:45)
[2021-07-12 10:22] VITALS: BP 182/68
== END 2021-07-12 10:41 | disposition home or self-care (01) ==
LOC: ED 08:06
DX: M10.071 Idiopathic gout, right ankle and foot (principal); I10 Essential (primary) hypertension; E11.9 Type 2 diabetes mellitus without complications; J43.9 Emphysema, unspecified; H91.90 Unspecified hearing loss, unspecified ear; Z79.4 Long term (current) use of insulin; Z20.822 Contact with and (suspected) exposure to COVID-19

== ENCOUNTER 2021-07-16 15:40 | Emergency (ER) | payer MEDICARE, OTHER ==
[~2021-07-16] VITALS: Ht 160 cm; Wt 80.0 kg
[~2021-07-16 15:40] MED LIST changes: +MITIGARE0.6 MG PO; +MOTRIN400 MG/TAB PO
[2021-07-16 17:30] LABS: HEMATOCRIT 44.2 % (37.0-47.0); HEMOGLOBIN 14.2 g/dl (12.0-16.0); IMMATURE GRANULOCYTES 0.3 % (0.0-5.0); MEAN CELL VOLUME 91.1 fL CALC (80.0-100.0); MEAN CORPUSCULAR HGB 29.3 pG CALC (26.0-32.0); MEAN CORPUSCULAR HGB CONC 32.1 g/dL CAL (32.0-36.0); NEUT# 4.18 thou/uL (2.00-7.15); RED BLOOD COUNT 4.85 mill/uL (4.20-5.60); RED CELL DISTRI WIDTH 13.6 % (11.5-15.5)
[2021-07-16 17:42] LABS: ALBUMIN 4.7 g/dL (3.2-5.0); ALKALINE PHOSPHATASE 86 u/l (38-126); ANION GAP 12 (6-22 (CALC)); BILIRUBIN, TOTAL 0.5 mg/dL (0.0-1.4); BUN 13 mg/dL (8-23); BUN/CREATININE RATIO 17 (12-20 (CALC)); CARBON DIOXIDE 31 mmol/l (22-30); CHLORIDE 103 mmol/l (95-108); CREATININE 0.8 mg/dL (0.5-1.0); GFR > 60 ML/MIN (>=60 (CALC)); GFR FOR AFR.AMER. > 60 ML/MIN (>=60 (CALC)); POTASSIUM 4.4 mmol/l (3.5-5.1); SGOT/AST 36 u/l (9-36); SODIUM 142 mmol/l (137-146)
[2021-07-16 17:47] LABS: TOTAL PROTEIN 9.4 g/dL (6.3-8.2)
[2021-07-16] MEDS ORDERED: CYCLOBENZAPRINE10 MG PO (18:32)
[2021-07-16] MEDS ORDERED: ULTRAM50 M1 PO (18:32)
[2021-07-16 20:18] VITALS: BP 164/69
== END 2021-07-16 20:18 | disposition home or self-care (01) ==
LOC: ED 15:40
PROVIDERS: Emergency Medicine
DX: M19.071 Primary osteoarthritis, right ankle and foot (principal); I10 Essential (primary) hypertension; E11.9 Type 2 diabetes mellitus without complications; J43.9 Emphysema, unspecified; H91.90 Unspecified hearing loss, unspecified ear; Z79.4 Long term (current) use of insulin; Z93.0 Tracheostomy status; M79.89 Other specified soft tissue disorders; M79.604 Pain in right leg

== ENCOUNTER 2021-11-03 07:17 | Emergency (ER) | payer MEDICARE, OTHER ==
[2021-11-03] VITALS (11 sets, daily range): BP systolic 127–164; BP diastolic 53–74
[~2021-11-03] VITALS: Ht 160 cm; Wt 75.0 kg
[~2021-11-03 07:17] MED LIST changes: +CYCLOBENZAPRINE10 MG PO; +ULTRAM50 M1 PO
[2021-11-03 08:35] LABS: URINE BILIRUBIN - DIPSTICK NEGATIVE (NEGATIVE); URINE BLOOD DIPSTICK NEGATIVE (NEGATIVE); URINE COLOR YELLOW; URINE GLUCOSE - DIPSTICK NEGATIVE (NEGATIVE); URINE KETONE NEGATIVE (NEGATIVE); URINE LEUK ESTERASE TRACE (NEGATIVE); URINE PROTEIN - DIPSTICK NEGATIVE (NEG-TRACE); URINE UROBILINOGEN - DIPSTICK 0.2 E.U./dL (0.2)
[2021-11-03 08:37] LABS: URINE NITRITE - DIPSTICK NEGATIVE (Negative)
[2021-11-03 08:43] LABS: HEMATOCRIT 41.4 % (37.0-47.0); HEMOGLOBIN 13.5 g/dl (12.0-16.0); IMMATURE GRANULOCYTES 0.3 % (0.0-5.0); MEAN CELL VOLUME 90.4 fL CALC (80.0-100.0); MEAN CORPUSCULAR HGB 29.5 pG CALC (26.0-32.0); MEAN CORPUSCULAR HGB CONC 32.6 g/dL CAL (32.0-36.0); NEUT# 4.84 thou/uL (2.00-7.15); RED BLOOD COUNT 4.58 mill/uL (4.20-5.60); RED CELL DISTRI WIDTH 13.1 % (11.5-15.5)
[2021-11-03 08:54] LABS: ALKALINE PHOSPHATASE 74 u/l (38-126); ANION GAP 15 (6-22 (CALC)); BILIRUBIN, TOTAL 0.4 mg/dL (0.0-1.4); BUN 9 mg/dL (8-23); BUN/CREATININE RATIO 13 (12-20 (CALC)); CARBON DIOXIDE 23 mmol/l (22-30); CHLORIDE 105 mmol/l (95-108); CREATININE 0.7 mg/dL (0.5-1.0); GFR > 60 ML/MIN (>=60 (CALC)); GFR FOR AFR.AMER. > 60 ML/MIN (>=60 (CALC)); POTASSIUM 4.4 mmol/l (3.5-5.1); SGOT/AST 28 u/l (9-36); SODIUM 139 mmol/l (137-146); TOTAL PROTEIN 7.5 g/dL (6.3-8.2)
[2021-11-03] MEDS ORDERED: PROMETHAZINE HY25 M1 PO (12:28)
== END 2021-11-03 13:09 | disposition home or self-care (01) ==
LOC: ED 07:17
PROVIDERS: Family Medicine
DX: M54.50 Low back pain, unspecified (principal); R11.10 Vomiting, unspecified; I10 Essential (primary) hypertension; E11.9 Type 2 diabetes mellitus without complications; J43.9 Emphysema, unspecified; H91.90 Unspecified hearing loss, unspecified ear; Z79.4 Long term (current) use of insulin

== ENCOUNTER 2021-11-18 08:56 | Emergency (ER) | payer MEDICARE, OTHER ==
[~2021-11-18] VITALS: Ht 160 cm; Wt 80.0 kg
[~2021-11-18 08:56] MED LIST changes: +PROMETHAZINE HY25 M1 PO
[2021-11-18 09:06] VITALS: BP 169/73
[2021-11-18 09:32] VITALS: BP 162/75
[2021-11-18] MEDS ORDERED: GABAPENTIN300 M2 PO (10:32)
[2021-11-18 10:38] VITALS: BP 162/75
== END 2021-11-18 10:49 | disposition home or self-care (01) ==
LOC: ED 08:56
DX: M54.50 Low back pain, unspecified (principal); M79.605 Pain in left leg; I10 Essential (primary) hypertension; E11.9 Type 2 diabetes mellitus without complications; J43.9 Emphysema, unspecified; H91.90 Unspecified hearing loss, unspecified ear; Z79.4 Long term (current) use of insulin

== ENCOUNTER 2022-01-27 09:53 | Emergency (ER) | payer MEDICARE ==
[~2022-01-27] VITALS: Ht 160 cm; Wt 80.0 kg
[~2022-01-27 09:53] MED LIST changes: +GABAPENTIN300 M2 PO
[2022-01-27 10:01] VITALS: BP 175/72
[2022-01-27 10:16] VITALS: BP 138/73
[2022-01-27 10:31] VITALS: BP 159/67
[2022-01-27 10:45] VITALS: BP 169/69
[2022-01-27 11:02] VITALS: BP 178/69
[2022-01-27 11:26] LABS: URINE BILIRUBIN - DIPSTICK NEGATIVE (NEGATIVE); URINE BLOOD DIPSTICK NEGATIVE (NEGATIVE); URINE COLOR YELLOW; URINE GLUCOSE - DIPSTICK NEGATIVE (NEGATIVE); URINE KETONE NEGATIVE (NEGATIVE); URINE LEUK ESTERASE NEGATIVE (NEGATIVE); URINE PH 6.5 (4.5-8.0); URINE PROTEIN - DIPSTICK NEGATIVE (NEG-TRACE); URINE UROBILINOGEN - DIPSTICK 0.2 E.U./dL (0.2)
[2022-01-27 11:26] LABS: HEMATOCRIT 39.6 % (37.0-47.0); HEMOGLOBIN 13.1 g/dl (12.0-16.0); IMMATURE GRANULOCYTES 0.2 % (0.0-5.0); MEAN CELL VOLUME 89.6 fL CALC (80.0-100.0); MEAN CORPUSCULAR HGB 29.6 pG CALC (26.0-32.0); MEAN CORPUSCULAR HGB CONC 33.1 g/dL CAL (32.0-36.0); NEUT# 6.15 thou/uL (2.00-7.15); RED BLOOD COUNT 4.42 mill/uL (4.20-5.60); RED CELL DISTRI WIDTH 13.3 % (11.5-15.5)
[2022-01-27 11:27] LABS: URINE NITRITE - DIPSTICK NEGATIVE (Negative)
[2022-01-27 11:42] LABS: ALBUMIN 4.1 g/dL (3.2-5.0); ALKALINE PHOSPHATASE 52 u/l (38-126); ANION GAP 10 (6-22 (CALC)); BUN 13 mg/dL (8-23); BUN/CREATININE RATIO 16 (12-20 (CALC)); CARBON DIOXIDE 27 mmol/l (22-30); CHLORIDE 103 mmol/l (95-108); CREATININE 0.8 mg/dL (0.5-1.0); GFR FOR AFR.AMER. > 60 ML/MIN (>=60 (CALC)); GFR OTHER RACES > 60 ML/MIN (>=60 (CALC)); LIPASE 46 u/l (23-300); POTASSIUM 4.6 mmol/l (3.5-5.1); SGOT/AST 46 u/l (9-36); SODIUM 136 mmol/l (137-146); TOTAL PROTEIN 7.9 g/dL (6.3-8.2)
[2022-01-27 11:43] LABS: BILIRUBIN, TOTAL 0.6 mg/dL (0.0-1.4)
[2022-01-27] MEDS ORDERED: ZOFRAN4 MG/TAB PO (13:28)
[2022-01-27 13:32] VITALS: BP 178/69
== END 2022-01-27 13:51 | disposition home or self-care (01) ==
LOC: ED 09:53
PROVIDERS: Internal Medicine
DX: R50.9 Fever, unspecified (principal); M54.9 Dorsalgia, unspecified; R10.9 Unspecified abdominal pain; R11.0 Nausea; R51.9 Headache, unspecified; I10 Essential (primary) hypertension; E11.9 Type 2 diabetes mellitus without complications; J43.9 Emphysema, unspecified; H91.90 Unspecified hearing loss, unspecified ear; Z79.4 Long term (current) use of insulin; Z20.822 Contact with and (suspected) exposure to COVID-19

== ENCOUNTER 2022-04-26 11:07 | Observation (INO) | payer MEDICARE, OTHER ==
[2022-04-26] VITALS (21 sets, daily range): BP systolic 158–201; BP diastolic 54–110
[~2022-04-26] VITALS: Ht 160 cm; Wt 79.0 kg
[~2022-04-26 11:07] MED LIST changes: +ZOFRAN4 MG/TAB PO
--- NOTE | 2022-04-26 11:20 | NUR ---
PT TO ROOM VIA WC
--- NOTE | 2022-04-26 12:14 | NUR ---
MEDICATED PATIENT AND TOOK HER OFF BEDPAN. URINE SAMPLE OBTAINED. PROVIDED BLANKET AND PILLOW, DIMMED LIGHTS. NO FURTHER NEEDS AT THIS TIME.
[2022-04-26 12:18] LABS: ALBUMIN 4.6 g/dL (3.2-5.0); ALKALINE PHOSPHATASE 71 u/l (38-126); ANION GAP 17 (6-22 (CALC)); BILIRUBIN, TOTAL 0.4 mg/dL (0.0-1.4); BUN 13 mg/dL (8-23); BUN/CREATININE RATIO 14 (12-20 (CALC)); CARBON DIOXIDE 28 mmol/l (22-30); CHLORIDE 98 mmol/l (95-108); CREATININE 0.9 mg/dL (0.5-1.0); GFR FOR AFR.AMER. > 60 ML/MIN (>=60 (CALC)); GFR OTHER RACES > 60 ML/MIN (>=60 (CALC)); LIPASE 64 u/l (23-300); POTASSIUM 4.6 mmol/l (3.5-5.1); SGOT/AST 44 u/l (9-36); SODIUM 138 mmol/l (137-146); TOTAL PROTEIN 8.8 g/dL (6.3-8.2)
[2022-04-26 12:59] LABS: HEMATOCRIT 40.7 % (37.0-47.0); HEMOGLOBIN 12.9 g/dl (12.0-16.0); IMMATURE GRANULOCYTES 0.3 % (0.0-5.0); MEAN CELL VOLUME 90.6 fL CALC (80.0-100.0); MEAN CORPUSCULAR HGB 28.7 pG CALC (26.0-32.0); MEAN CORPUSCULAR HGB CONC 31.7 g/dL CAL (32.0-36.0); NEUT# 4.95 thou/uL (2.00-7.15); RED BLOOD COUNT 4.49 mill/uL (4.20-5.60); RED CELL DISTRI WIDTH 13.4 % (11.5-15.5)
[2022-04-26 13:04] LABS: URINE BILIRUBIN - DIPSTICK NEGATIVE (NEGATIVE); URINE BLOOD DIPSTICK NEGATIVE (NEGATIVE); URINE COLOR YELLOW; URINE GLUCOSE - DIPSTICK NEGATIVE (NEGATIVE); URINE KETONE NEGATIVE (NEGATIVE); URINE LEUK ESTERASE NEGATIVE (NEGATIVE); URINE PROTEIN - DIPSTICK NEGATIVE (NEG-TRACE); URINE UROBILINOGEN - DIPSTICK 0.2 E.U./dL (0.2)
[2022-04-26 13:14] LABS: URINE NITRITE - DIPSTICK NEGATIVE (Negative)
--- NOTE | 2022-04-26 13:15 | NUR ---
Reassessment of patient completed. No distress noted.
--- NOTE | 2022-04-26 14:15 | NUR ---
PATIENT REQUESTING BED CASTANEDA, PROVIDED, UNABLE TO URINATE BUT STATES SHE FEELS THE URGE TO. EDUCATED THAT I WILL ASK PROVIDER IF PATIENT SHOULD HAVE A NAVA CATHETER AND RETURN.
--- NOTE | 2022-04-26 14:30 | NUR ---
RETURNED TO ROOM TO ASSIST PATIENT WITH TOILETING AND ANOTHER NURSE IS ASSISTING. -
--- NOTE | 2022-04-26 15:30 | NUR ---
Reassessment of patient completed. No distress noted.
--- NOTE | 2022-04-26 16:25 | NUR ---
Reassessment of patient completed. No distress noted.
--- NOTE | 2022-04-26 17:20 | NUR ---
SPOKE TO DR BOTELLO AND REQUESTED ORDER FOR MEAL TRAY AND SOMETHING FOR ELEVATED BLOOD PRESSURE
--- NOTE | 2022-04-26 17:40 | NUR ---
PROVIDED PATIENT WITH MEAL TRAY AND CHECKED GLUCOSE
--- NOTE | 2022-04-26 18:30 | NUR ---
BEDSIDE REPORT GIVEN TO ELVI. VERBALIZED UNDERSTANDING. PATIENT IN NAD.
--- NOTE | 2022-04-26 19:03 | NUR ---
HANDOFF REPORT GIVEN FROM CASSANDRA THURSTON. NO S/S OF DISTRESS NOTED. PT TO BE ADMITTED
--- NOTE | 2022-04-26 19:49 | NUR ---
PT ARRIVED TO MS @194 VIA STRETCHER, ACCOMPANIED BY ER NURSE. RECEIVED REPORT FROM CASSANDRA BOLES. PT'S DAUGHTER AND DIANN AT BEDSIDE. PT ARMENIAN SPEAKING ONLY: A&O X3. PT ORIENTED TO ROOM AND CALL LIGHT USE. PT ON BOYD. TRACHEOSTOMY NOTED. TELEMETRY IN PLACE. IV SITE HEALTHY AND PATENT. ACTIVE BOWEL SOUNDS X4 QUADRANTS. PUREWICK IN PLACE WITH CLEAR PALE URINE. SAFETY PRECAUTIONS IN PLACE WITH CALL LIGHT IN REACH.
[2022-04-27] VITALS (10 sets, daily range): BP systolic 138–168; BP diastolic 45–68
--- NOTE | 2022-04-27 00:07 | NUR ---
PT RESTING ON BED. VS OBTAINED BY AIDE AT THIS TIME. NO DISTRESS OR PAIN NOTED. IV SITE HEALTHY AND PATENT. PUREWICK IN PLACE WITH CLEAR, PALE YELLOW URINE. NO NEEDS AT THIS TIME. SAFETY PRECAUTIONS IN PLACE WITH CALL LIGHT IN REACH.
--- NOTE | 2022-04-27 04:22 | NUR ---
PT SITTING ON BED LOW FOWLERS. NO DISTRESS OR PAIN NOTED. SPECIMEN OBTAINED FROM MADHU NEAL AND SENT TO LAB. IV SITE HEALTHY AND PATENT, INFUSING FLUIDS PER ORDER. PUREWICK IN PLACE WITH CLEAR, PALE YELLOW URINE. SAFETY PRECAUTIONS IN [facility] WITH CALL LIGHT IN REACH.
[2022-04-27 05:28] LABS: HEMATOCRIT 43.6 % (37.0-47.0); HEMOGLOBIN 13.9 g/dl (12.0-16.0); IMMATURE GRANULOCYTES 0.1 % (0.0-5.0); MEAN CELL VOLUME 89.9 fL CALC (80.0-100.0); MEAN CORPUSCULAR HGB 28.7 pG CALC (26.0-32.0); MEAN CORPUSCULAR HGB CONC 31.9 g/dL CAL (32.0-36.0); NEUT# 4.94 thou/uL (2.00-7.15); RED BLOOD COUNT 4.85 mill/uL (4.20-5.60); RED CELL DISTRI WIDTH 13.8 % (11.5-15.5)
[2022-04-27 05:37] LABS: ALBUMIN 4.1 g/dL (3.2-5.0); ALKALINE PHOSPHATASE 54 u/l (38-126); BUN 15 mg/dL (8-23); BUN/CREATININE RATIO 21 (12-20 (CALC)); CARBON DIOXIDE 24 mmol/l (22-30); CHLORIDE 102 mmol/l (95-108); CREATININE 0.7 mg/dL (0.5-1.0); GFR FOR AFR.AMER. > 60 ML/MIN (>=60 (CALC)); GFR OTHER RACES > 60 ML/MIN (>=60 (CALC)); SGOT/AST 40 u/l (9-36); SODIUM 137 mmol/l (137-146); TOTAL PROTEIN 7.7 g/dL (6.3-8.2)
[2022-04-27 05:57] LABS: ANION GAP 17 (6-22 (CALC)); BILIRUBIN, TOTAL 0.7 mg/dL (0.0-1.4); POTASSIUM 5.8 mmol/l (3.5-5.1)
--- NOTE | 2022-04-27 08:35 | NUR ---
pt sitting in bed. a&o x3. primairly botswanan speaking. 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 currently rec breathing txs with home equipment. clear breath sounds upon ausucltation. active bowel sounds. purewick to suction. pt educated on need for mri, pt requesting to be premedicated as she is claustrophobic, MD to be notified. states symptoms have improved compared to yesterday. pt requesting to get in recliner. pt assisted in recliner with the help of Alice CLARK, pt tolerated well. no other needs. assessment completed. call light within reach. isolation precautions in place for hx of MRSA, swab pending result.
--- NOTE | 2022-04-27 10:40 | NUR ---
Dr escalante at bedside for assessment and discussion of poc
[2022-04-27 10:56] LABS: BUN 13 mg/dL (8-23); BUN/CREATININE RATIO 19 (12-20 (CALC)); CARBON DIOXIDE 21 mmol/l (22-30); CHLORIDE 104 mmol/l (95-108); CREATININE 0.7 mg/dL (0.5-1.0); GFR FOR AFR.AMER. > 60 ML/MIN (>=60 (CALC)); GFR OTHER RACES > 60 ML/MIN (>=60 (CALC)); SODIUM 138 mmol/l (137-146)
[2022-04-27 11:12] LABS: ANION GAP 18 (6-22 (CALC)); POTASSIUM 4.5 mmol/l (3.5-5.1)
--- NOTE | 2022-04-27 12:18 | NUR ---
pt sitting in recliner with family at bedside. no distress noted. call light within reach.
--- NOTE | 2022-04-27 15:48 | NUR ---
pt sitting in recliner with family at bedside. pt updated on MRI planning, plan to complete MRI when radiology avilable. pt to be pre medicated with ativan IV per MD prior to scan. pt and family agreeable and appreciative. no other needs at this time. call light within reach.
--- NOTE | 2022-04-27 17:04 | NUR ---
pt given 1 mg ativan IV x1 prior to MRI, pt denies any special instructions to not rec MRI after trach reports no metal in her whatsoever. IV healthy and patent. this creative writer remains at side during MRI per pt and family request.
--- NOTE | 2022-04-27 17:51 | NUR ---
Pt able to tolerate MRI with no difficulty. pt assisted back into the chair and set up for dinner. no needs. sons remain at bedside. call light within reach.
--- NOTE | 2022-04-27 20:30 | NUR ---
PT RESTING IN BED, NO SIGNS OF DISTRESS NOTED, RESP EVEN AND UNLABORED. PT ALERT AND ORIENTED X3, FAMILY AT BEDSIDE. PT HAS A TRACH, NO OXYGEN, RESP EVEN AND UNLABORED. SKIN INTACT, PURE WICK IN PLACE.IVF TO LH INFUSING WELL. DISCUSSED POC, VERBALIZED UNDERSTANDING. ASSESSMENT COMPLETED, CALL LIGHT IN REACH, CONTINUE TO MONITOR.
--- NOTE | 2022-04-27 23:11 | NUR ---
DRY PRESS OPERATOR HELPER AT BEDSIDE FOR LAB DRAW, NO SIGNS OF DISTRESS NOTED, RESP EVEN AND UNLABORED. PT TOLERATED WELL. PT MEDICATED WITH MOM PER REQUEST. CALL LIGHT IN REACH,CONTINUE TO MONITOR.
[2022-04-27 23:53] LABS: ANION GAP 13 (6-22 (CALC)); BUN 12 mg/dL (8-23); BUN/CREATININE RATIO 14 (12-20 (CALC)); CARBON DIOXIDE 24 mmol/l (22-30); CHLORIDE 104 mmol/l (95-108); CREATININE 0.9 mg/dL (0.5-1.0); GFR FOR AFR.AMER. > 60 ML/MIN (>=60 (CALC)); GFR OTHER RACES > 60 ML/MIN (>=60 (CALC)); POTASSIUM 3.8 mmol/l (3.5-5.1); SODIUM 137 mmol/l (137-146)
[2022-04-28] VITALS (7 sets, daily range): BP systolic 141–177; BP diastolic 45–61
--- NOTE | 2022-04-28 | NUR ---
PT RESTING IN BED WITH EYES CLOSED, NO SIGNS OF DISTRESS NOTED, RESP EVEN AND UNLABORED. CALL LIGHT IN REACH,CONTINUE TO MONITOR.
--- NOTE | 2022-04-28 04:07 | NUR ---
PT RESTING IN BED, NO SIGNS OF DISTRESS NOTED, RESP EVEN AND UNLABORED. VITALS OBTAINED, PT VOICES NO NEEDS OR COMPLAINTS AT THIS TIME, CALL LIGHT IN REACH,CONTINUE TO MONITOR.
[2022-04-28 06:28] LABS: ALBUMIN 3.4 g/dL (3.2-5.0); ALKALINE PHOSPHATASE 68 u/l (38-126); ANION GAP 15 (6-22 (CALC)); BUN 14 mg/dL (8-23); BUN/CREATININE RATIO 19 (12-20 (CALC)); CARBON DIOXIDE 23 mmol/l (22-30); CHLORIDE 105 mmol/l (95-108); CREATININE 0.7 mg/dL (0.5-1.0); GFR FOR AFR.AMER. > 60 ML/MIN (>=60 (CALC)); GFR OTHER RACES > 60 ML/MIN (>=60 (CALC)); POTASSIUM 4.1 mmol/l (3.5-5.1); SGOT/AST 25 u/l (9-36); SODIUM 139 mmol/l (137-146); TOTAL PROTEIN 6.3 g/dL (6.3-8.2)
[2022-04-28 06:45] LABS: BILIRUBIN, TOTAL 0.3 mg/dL (0.0-1.4)
--- NOTE | 2022-04-28 07:30 | NUR ---
BEDSIDE SHIFT REPORT DONE, PT AWAKE ALERT AND ORIENTED RELAXING IN BED, DENIES PAIN/DISCOMFORT, IVF 0.9 NS INFRSING @ 80/CC TO SUTE IN , TELE MONITOR IN PLACE, CALL SULLIVAN IN REACH AND BED LOCKED IN LOWEST POSITION. PT IS DIVEHI SPEAKING ONLY-NIGHT NURSE TRANSLATED.
--- NOTE | 2022-04-28 12:00 | NUR ---
SITTING UP IN RECLINER FOR MEAL, CONDITION STABLE, NO NEW COMPLAIN.
--- NOTE | 2022-04-28 16:00 | NUR ---
STABLE , FAMILY MEMBERS VISITING.
--- NOTE | 2022-04-28 19:30 | NUR ---
PT RESTING IN RECLINER AT BEDSIDE, NO SIGNS OF DISTRESS NOTED,RESP EVEN AND UNLABORED. PT ALERT AND ORIENTED X3, FAMILY AT BEDSIDE. PT HAS A TRACH, NO SUPPLEMENTAL OXYGEN NEEDED. SKIN INTACT, NO EDEMA. DISCUSSED POC, VERBALIZED UNDERSTANDING. VOICES NO NEEDS OR COMPLAINTS AT THIS TIME. ASSESSMENT COMPLETED, CALL LIGHT IN REACH,CONTINUE TO MONITOR.
--- NOTE | 2022-04-29 | NUR ---
PT RESTING IN BED, NO SIGNS OF DISTRESS NOTED, RESP EVEN AND UNLABORED. PT EASILY AROUSED TO VERBAL STIMULI,PT DENIES ANY NEEDS OR COMPLAINTS AT THIS TIME, CALL LIGHT IN REACH,CONTINUE TO MONITOR.
[2022-04-29 00:46] VITALS: BP 154/46
--- NOTE | 2022-04-29 03:58 | NUR ---
PT RESTING IN BED WITH EYES CLOSED, NO SIGNS OF DISTRESS NOTED, RESP EVEN AND UNLABORED. CALL LIGHT IN REACH,CONTINUE TO MONITOR.
[2022-04-29 04:08] VITALS: BP 159/46
[2022-04-29 06:38] VITALS: BP 150/45
--- NOTE | 2022-04-29 08:00 | NUR ---
PATIENT IS A/OX4, ABLE TO MAKE NEEDS KNOWN TO STAFF, DENIES PAIN AT THIS TIME. 3MM PERRLA, CLEAR SPEACH. CROATIAN SPEAKING MAINLY. CLEAR LUNG SOUNDS. TRACH DRESSING C/D/I. ACTIVE BOWEL SOUNDS. SOFT NON TENDER ABDOMEN. NO EDEMA PRESENT AT THIS TIME. STRONG PULSES. SAFETY MEASURES IIN PLACE. CALL LIGHT IN REACH. WILL CONTINUE TO MONITOR [facility]'S POLICY.
[2022-04-29 10:42] VITALS: BP 164/54
[2022-04-29] MEDS ORDERED: MECLIZINE25 MG PO (11:45)
--- NOTE | 2022-04-29 12:00 | NUR ---
PATIENT SITTING IN CHAIR EATING LUNCH, DAUGHTER AT BEDSIDE.
--- NOTE | 2022-04-29 12:50 | NUR ---
NURSE RADHA AND I SPOKE WITH PATIENT AND DAUGHTER ABOUT THE DISCHARGE PAPERWORK. THEY BOTH STATED THEY UNDERSTOOD, MED WAS SENT TO PHARMACY. IV REMOVED. PAPERWORK WAS SIGNED. PATIENT WHEELED DOWNSTAIRS WITH PATIENT'S DAUGHTER AT SIDE AND AIDE WHEELING HER DOWN VIA WHEELCHAIR.
== END 2022-04-29 12:50 | disposition home or self-care (01) ==
LOC: ED 11:07 → ED-I 16:50 → MS2 17:10 → ED 17:10 → MS2 04-29 12:50
PROVIDERS: Emergency Medicine; ADMIT Internal Medicine; ATTEND Internal Medicine
DX: R42 Dizziness and giddiness (principal); I10 Essential (primary) hypertension; E11.9 Type 2 diabetes mellitus without complications; J43.9 Emphysema, unspecified; M54.12 Radiculopathy, cervical region; E78.5 Hyperlipidemia, unspecified; E89.0 Postprocedural hypothyroidism; H91.90 Unspecified hearing loss, unspecified ear; M19.079 Primary osteoarthritis, unspecified ankle and foot; Z79.4 Long term (current) use of insulin; Z93.0 Tracheostomy status; Z87.891 Personal history of nicotine dependence; Z20.822 Contact with and (suspected) exposure to COVID-19
CPT/HCPCS: J2060; Q9967

== ENCOUNTER 2022-08-17 15:45 | Emergency (ER) | payer MEDICARE ==
[2022-08-17] VITALS (10 sets, daily range): BP systolic 85–170; BP diastolic 51–106
[~2022-08-17] VITALS: Ht 160 cm; Wt 77.1 kg
[~2022-08-17 15:45] MED LIST changes: +MECLIZINE25 MG PO
[2022-08-17] MEDS ORDERED: PAXLOVID PO (17:59)
== END 2022-08-17 18:10 | disposition home or self-care (01) ==
LOC: ED 15:45
DX: U07.1 COVID-19 (principal); I10 Essential (primary) hypertension; E11.9 Type 2 diabetes mellitus without complications; J43.9 Emphysema, unspecified; H91.90 Unspecified hearing loss, unspecified ear; Z93.0 Tracheostomy status; Z79.4 Long term (current) use of insulin

== ENCOUNTER 2022-09-17 08:28 | Emergency (ER) | payer MEDICARE, OTHER ==
[~2022-09-17] VITALS: Ht 160 cm; Wt 79.3 kg
[~2022-09-17 08:28] MED LIST changes: +PAXLOVID PO
[2022-09-17 08:44] VITALS: BP 149/63
[2022-09-17 09:12] LABS: BASO% 0.4 % (0-3); EOS% 1.2 % (0-8); HEMATOCRIT 41.2 % (37.0-47.0); HEMOGLOBIN 13.1 g/dl (12.0-16.0); IMMATURE GRANULOCYTES 0.1 % (0.0-5.0); MEAN CELL VOLUME 90.7 fL CALC (80.0-100.0); MEAN CORPUSCULAR HGB 28.9 pG CALC (26.0-32.0); MEAN CORPUSCULAR HGB CONC 31.8 g/dL CAL (32.0-36.0); NEUT# 8.52 thou/uL (2.00-7.15); NEUT% 77.3 % (42-76); RED BLOOD COUNT 4.54 mill/uL (4.20-5.60); RED CELL DISTRI WIDTH 14.1 % (11.5-15.5)
[2022-09-17 09:24] LABS: ALBUMIN 4.4 g/dL (3.2-5.0); ALKALINE PHOSPHATASE 59 u/l (38-126); ANION GAP 15 (6-22 (CALC)); BUN 9 mg/dL (8-23); BUN/CREATININE RATIO 11 (12-20 (CALC)); CARBON DIOXIDE 25 mmol/l (22-30); CHLORIDE 101 mmol/l (95-108); CREATININE 0.8 mg/dL (0.5-1.0); GFR FOR AFR.AMER. > 60 ML/MIN (>=60 (CALC)); GFR OTHER RACES > 60 ML/MIN (>=60 (CALC)); POTASSIUM 4.2 mmol/l (3.5-5.1); SGOT/AST 40 u/l (9-36); SODIUM 137 mmol/l (137-146); TOTAL PROTEIN 8.3 g/dL (6.3-8.2)
[2022-09-17 09:25] LABS: BILIRUBIN, TOTAL 0.5 mg/dL (0.02-1.3)
[2022-09-17 09:39] VITALS: BP 128/54
[2022-09-17 09:46] VITALS: BP 140/57
[2022-09-17 10:01] VITALS: BP 158/66
[2022-09-17 10:16] VITALS: BP 145/68
[2022-09-17] MEDS ORDERED: DOXYCYCL HYC100 M4 PO (10:19)
[2022-09-17] MEDS ORDERED: BENZONATATE200 MG PO (10:19)
[2022-09-17 10:44] VITALS: BP 145/68
== END 2022-09-17 10:53 | disposition home or self-care (01) ==
LOC: ED 08:28
PROVIDERS: Family Medicine
DX: J06.9 Acute upper respiratory infection, unspecified (principal); I10 Essential (primary) hypertension; E11.9 Type 2 diabetes mellitus without complications; J43.9 Emphysema, unspecified; H91.90 Unspecified hearing loss, unspecified ear; Z79.4 Long term (current) use of insulin; Z20.822 Contact with and (suspected) exposure to COVID-19

== ENCOUNTER 2022-10-02 11:37 | Emergency (ER) | payer MEDICARE, OTHER ==
[2022-10-02] VITALS (8 sets, daily range): BP systolic 140–179; BP diastolic 49–74
[~2022-10-02] VITALS: Ht 160 cm; Wt 82.1 kg
[~2022-10-02 11:37] MED LIST changes: +BENZONATATE200 MG PO; +DOXYCYCL HYC100 M4 PO
[2022-10-02 12:54] LABS: URINE BILIRUBIN - DIPSTICK NEGATIVE (NEGATIVE); URINE BLOOD DIPSTICK SMALL (NEGATIVE); URINE CLARITY SL CLOUDY; URINE COLOR YELLOW; URINE GLUCOSE - DIPSTICK NEGATIVE (NEGATIVE); URINE KETONE NEGATIVE (NEGATIVE); URINE LEUK ESTERASE MODERATE (Negative); URINE NITRITE - DIPSTICK NEGATIVE (Negative); URINE PH 6.5 (4.5-8.0); URINE PROTEIN - DIPSTICK NEGATIVE (NEG-TRACE); URINE SPECIFIC GRAVITY <=1.005; URINE UROBILINOGEN - DIPSTICK 0.2 E.U./dL (0.2)
[2022-10-02 12:55] LABS: BASO% 0.4 % (0-3); EOS% 0.8 % (0-8); HEMATOCRIT 40.6 % (37.0-47.0); HEMOGLOBIN 13.1 g/dl (12.0-16.0); IMMATURE GRANULOCYTES 0.1 % (0.0-5.0); LYMPH% 15.6 % (15-41); MEAN CELL VOLUME 90.6 fL CALC (80.0-100.0); MEAN CORPUSCULAR HGB 29.2 pG CALC (26.0-32.0); MEAN CORPUSCULAR HGB CONC 32.3 g/dL CAL (32.0-36.0); MONO% 6.9 % (2-13); NEUT# 10.41 thou/uL (2.00-7.15); NEUT% 76.2 % (42-76); RED BLOOD COUNT 4.48 mill/uL (4.20-5.60)
[2022-10-02 13:01] LABS: URINE RBC 0-2 RBC/hpf (0-5); URINE SQUAMOUS EPITHELIAL CELL FEW EPI/hpf (0-FEW); URINE WBC 20-50 WBC/hpf (0-5)
[2022-10-02 13:03] LABS: URINE BACTERIA FEW hpf
[2022-10-02 13:13] LABS: ALBUMIN 4.3 g/dL (3.2-5.0); ALKALINE PHOSPHATASE 64 u/l (38-126); ANION GAP 12 (6-22 (CALC)); BILIRUBIN, TOTAL 0.3 mg/dL (0.02-1.3); BUN 11 mg/dL (8-23); BUN/CREATININE RATIO 14 (12-20 (CALC)); CARBON DIOXIDE 28 mmol/l (22-30); CHLORIDE 105 mmol/l (95-108); CREATININE 0.7 mg/dL (0.5-1.0); GFR FOR AFR.AMER. > 60 ML/MIN (>=60 (CALC)); GFR OTHER RACES > 60 ML/MIN (>=60 (CALC)); POTASSIUM 4.9 mmol/l (3.5-5.1); SGOT/AST 33 u/l (9-36); SODIUM 140 mmol/l (137-146); TOTAL PROTEIN 8.3 g/dL (6.3-8.2)
[2022-10-02] MEDS ORDERED: KEFLEX500 MG PO (14:11)
== END 2022-10-02 15:00 | disposition home or self-care (01) ==
LOC: ED 11:37
PROVIDERS: Emergency Medicine
DX: N39.0 Urinary tract infection, site not specified (principal); I10 Essential (primary) hypertension; E11.9 Type 2 diabetes mellitus without complications; J43.9 Emphysema, unspecified; H91.90 Unspecified hearing loss, unspecified ear; Z79.4 Long term (current) use of insulin; Z87.440 Personal history of urinary (tract) infections; Z93.0 Tracheostomy status

== ENCOUNTER 2024-02-29 11:50 | Emergency (ER) | payer MEDICARE, OTHER ==
[~2024-02-29] VITALS: Ht 160 cm; Wt 75.9 kg
[2024-02-29 12:08] VITALS: BP 181/70
[2024-02-29 12:16] VITALS: BP 149/71
[2024-02-29] MEDS ORDERED: ONDANSETRON HCl 4 MG/2 ML SDV IV STA (12:20)
[2024-02-29] MEDS ORDERED: SODIUM CHLORIDE 0.9% 1,000 ML IV STA (12:20)
[2024-02-29] MEDS ORDERED: Pantoprazole Sodium 40 MG VIAL (Protonix) IV STA (12:20)
[2024-02-29] MEDS ORDERED: MORPHINE SULFATE 4 MG/ML VIAL IV STA (12:20)
[2024-02-29 12:31] VITALS: BP 182/71
[2024-02-29 12:39] LABS: BASO% 0.3 % (0-3); EOS% 1.5 % (0-8); HEMOGLOBIN 12.5 g/dl (12.0-16.0); IMMATURE GRANULOCYTES 0.3 % (0.0-5.0); LYMPH% 27.5 % (15-41); MEAN CELL VOLUME 87.6 fL CALC (80.0-100.0); MEAN CORPUSCULAR HGB 28.1 pG CALC (26.0-32.0); MEAN CORPUSCULAR HGB CONC 32.1 g/dL CAL (32.0-36.0); MONO% 10.7 % (2-13); NEUT# 4.65 thou/uL (2.00-7.15); NEUT% 59.7 % (42-76); RED BLOOD COUNT 4.45 mill/uL (4.20-5.60); RED CELL DISTRI WIDTH 14.1 % (11.5-15.5)
[2024-02-29 12:46] VITALS: BP 134/78
[2024-02-29 12:52] LABS: ALBUMIN 4.2 g/dL (3.2-5.0); ALKALINE PHOSPHATASE 54 u/l (38-126); AMYLASE 69 u/l (30-110); ANION GAP 9 (6-22 (CALC)); BILIRUBIN, TOTAL 0.6 mg/dL (0.02-1.3); BUN 8 mg/dL (8-23); BUN/CREATININE RATIO 11 (12-20 (CALC)); CARBON DIOXIDE 26 mmol/l (22-30); CHLORIDE 108 mmol/l (95-108); CREATININE 0.8 mg/dL (0.5-1.0); ESTIMATED GFR 76 ML/MIN (>=90 (CALC)); LIPASE 62 u/l (23-300); SGOT/AST 37 u/l (9-36); SODIUM 138 mmol/l (137-146)
[2024-02-29 13:00] VITALS: BP 141/51
[2024-02-29 15:08] LABS: URINE BILIRUBIN - DIPSTICK Negative (NEGATIVE); URINE BLOOD DIPSTICK Negative (NEGATIVE); URINE GLUCOSE - DIPSTICK Negative (NEGATIVE); URINE KETONE Negative (NEGATIVE); URINE LEUK ESTERASE Trace (NEGATIVE); URINE NITRITE - DIPSTICK Negative (Negative); URINE PROTEIN - DIPSTICK Negative (NEG-TRACE); URINE UROBILINOGEN - DIPSTICK 0.2 E.U./dL (0.2)
[2024-02-29 15:09] LABS: URINE COLOR Yellow
[2024-02-29] MEDS ORDERED: PROTONIX40 M2 PO (15:47)
[2024-02-29 15:49] VITALS: BP 141/51
[2024-02-29] MEDS ORDERED: TRIAMCINOLON0.13 EX (16:11)
== END 2024-02-29 16:10 | disposition home or self-care (01) ==
LOC: ED 11:50
PROVIDERS: Nurse Practitioner Family
DX: K29.70 Gastritis, unspecified, without bleeding (principal); I12.9 Hypertensive chronic kidney disease with stage 1 through stage 4 chronic kidney disease, or unspecified chronic kidney disease; E11.22 Type 2 diabetes mellitus with diabetic chronic kidney disease; N18.9 Chronic kidney disease, unspecified; E03.9 Hypothyroidism, unspecified; J43.9 Emphysema, unspecified; H91.90 Unspecified hearing loss, unspecified ear; R21 Rash and other nonspecific skin eruption; Z79.4 Long term (current) use of insulin; Z93.0 Tracheostomy status; Z20.822 Contact with and (suspected) exposure to COVID-19
CPT/HCPCS: J2470; Q9967